=== PATIENT | female | born 1980 | race Caucasian/White ===

== ENCOUNTER 2020-03-31 13:36 | Inpatient (IN) | payer OTHER ==
[~2020-03-31] VITALS: Ht 157.5 cm; Wt 61.2 kg
[2020-03-31] MEDS ORDERED: PRENATAL TABLE1 EAC1 PO (13:55)
[2020-03-31] MEDS ORDERED: IRON325 MG PO (13:56)
[2020-03-31] MEDS ORDERED: ONDANSETRON HCL4 MG PO (13:57)
[2020-04-02] MEDS ORDERED: IBUPROFEN800 MG PO (16:45)
[2020-04-02] MEDS ORDERED: SENOKOT8.6 M1 PO (16:45)
[2020-04-02] MEDS ORDERED: SIMETHICONE125 M1 PO (16:45)
== END 2020-04-02 16:51 | disposition home or self-care (01) | DRG 788 ==
LOC: SURG-SUITE 13:36 → LDR 13:36 → O/R 16:39 → OB/GYN 18:42 → SURG-SUITE 20:33
PROVIDERS: ADMIT Obstetrics & Gynecology; ATTEND Obstetrics & Gynecology
PROC: 4A1HXCZ Monitoring of Products of Conception, Cardiac Rate, External Approach (ICD-10-PCS; 2020-03-31)
PROC: 10D00Z1 Extraction of Products of Conception, Low, Open Approach (ICD-10-PCS; principal; 2020-03-31 16:00)
DX: O82 Encounter for cesarean delivery without indication (principal); Z3A.37 37 weeks gestation of pregnancy; Z37.0 Single live birth